=== PATIENT | male | born 1950 | race Caucasian/White ===

== ENCOUNTER → 2016-10-12 | Outpatient (CLI) | payer OTHER ==
[~2016-10-12] VITALS: Ht 182.9 cm; Wt 104.3 kg
[~2016-10-12] MED LIST: LEXAPRO 10 MG T10 M1 PO; LEXAPRO20 MG PO; LISINOPRIL20 MG PO; MIRAPEX0.125 MG PO; TRAZODONE HCL100 MG PO
--- NOTE | ~2016-10-12 | HPC ---
[facility] [place] [address] PAIN MANAGEMENT CONSULTATION Name: SUE ELLISNE [facility] [id number] Admission: 10/12/16 Attend Phys: All Ellis DO Discharge: Date of : 50 Report #: [id number] THIS REPORT FOR: //name// CC: Dewey Ellis The patient is a 65-year-old gentleman seen in consultation at the request of Dr. Hahn for evaluation of pain in left hip, lateral thigh, calf, to ankle. The patient notes some subjective weakness in the leg, paresthesia, but no saddle anesthesia nor bowel or bladder continence changes. He has used [id number] anti-inflammatory medications, physical therapy, exercises and range of motion. Pain has been present since July without specific antecedent trauma or overuse. Notes pain is in the left hip, thigh, ankle, del castillo down to his foot. Notes, it is exacerbated with sitting or lying, gets some relief in the afternoons with some standing and walking. Describes periodic, intermittent burning, aching, sharp pain, rates it anywhere from a 3-9 on a 0-10 visual analog scale. REVIEW OF SYSTEMS: Complete review of systems was attached to chart and gone over with the patient. He is , does not smoke nor drink alcohol to excess. States he had consumed alcohol heavily in his youth. 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 He has a history of hypertension treated with lisinopril, restless legs syndrome for which he takes Mirapex, chronic anxiety and depression for which he takes Lexapro and trazodone. States that he had been suicidal at one point and is in counseling presently. Surgery includes a right knee arthroscopy, right shoulder surgery, left shoulder surgery, and a nasal septal reconstruction. 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 Pain impact score averages about 4.2 for all indices queried. PHYSICAL EXAMINATION: Reveals a 6 feet tall, 230 pound gentleman, BMI is 31.2 kilograms per meter squared. Blood pressure 159/95, pulse is 58, respirations of 16. Cervical range of motion is full. Upper extremity strength is preserved. Cranial nerves 2-12 are grossly intact. Pupils are equal, reactive to light and accommodation. Extraocular muscles are intact with no nystagmus. Heart is regular rhythmical. Lungs are clear. Right shoulder does have some pain with abduction, status post right shoulder surgery in distant past, recent strain, though this patient feels is transient. Rises from the chair using the armrest, gait is modestly antalgic. Does have some osseous hypertrophy in the bilateral knees. Lower extremity strength is generally symmetric about 4/5 to all muscle groups tested. Positive straight [facility] [address] [place] [address] PAIN MANAGEMENT CONSULTATION Name: SUE ELLIS Room #: REG [facility] Ton#: [id number] Admission: 10/12/16 Attend Phys: All Ellis DO Discharge: Date of : 50 Report #: [id number] leg raise on the left. Left patellar reflex is diminished compared to the right. Achilles reflexes are symmetric. Skin integument is intact. DIAGNOSTIC STUDIES: Include an MRI of the lumbar spine showing lumbar spondylosis throughout, thecal sac narrowing at L3-L4, L4-L5 notes narrowing of the left lateral margin on the posterior elements. Small left apophyseal joint effusion at L5-S1. ASSESSMENT: Symptomatic lumbar radiculopathy. RECOMMENDATIONS: Lumbar epidural injection under fluoroscopy for classic left L4 distribution. We will request authorization for L4-L5 translaminar epidural injection. By: [id number] All Ellis DO /nt
[2016-10-12 12:43] VITALS: BP 159/95
== END | disposition home or self-care (01) ==
LOC: PAIN 10-09 14:29
DX: M54.16 Radiculopathy, lumbar region (principal); M48.06 Spinal stenosis, lumbar region; Z98.890 Other specified postprocedural states

== ENCOUNTER → 2016-10-26 | Outpatient (CLI) | payer OTHER ==
[~2016-10-26] VITALS: Ht 180.3 cm; Wt 108.9 kg
[~2016-10-26] MED LIST changes: +ALEVE220 MG PO
--- NOTE | ~2016-10-26 | HPC ---
[facility] [place] [address] [address] PAIN MANAGEMENT CONSULTATION Name: SUE ELLIS Room #: REG [facility] Ton#: [id number] Admission: 10/26/16 Attend Phys: All Ellis DO Discharge: Date of : 50 Report #: [id number] THIS REPORT FOR: //name// CC: Dewey Ellis HISTORY OF PRESENT ILLNESS: The patient is a 65-year-old gentleman, prior seen in the pain clinic 10/12/2016. He was seen in consultation at that time, we diagnosed symptomatic lumbar radiculopathy, sought authorization for epidural injection under fluoroscopy. Authorization was obtained for lumbar epidural injection under fluoroscopy for the time interval 10/20/2016 through 01/18/2017. The patient returns to pain clinic today. I reviewed the MRI from 01/07/2015 with the patient. L4-L5 notes mild left lateral marginal posterior elements with some compromise at this level, L5-S1 notes mild narrowing of the left lateral margin and posterior element, also causing some left neural foraminal narrowing, has some right-sided issues, though they do not seem to be associated with radicular symptoms. The patient notes his pain is fairly specifically in the left hip, lateral thigh, down to the del castillo and ankle. 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 X-rays from 09/10/2014 notes straightening of the lumbar lordosis with degenerative changes. The patient notes the ongoing pain that he rates anywhere from a 1-8 on a VAS, noting pain is worse at night, again left hip, left thigh, knee, del castillo and ankle. Intermittent burning, aching, sharp pain, exacerbated with standing, walking, though sleeping also seems to be compromised by his pain. PHYSICAL EXAMINATION: Unchanged from consultation. A 65-year-old gentleman, BMI is 33.5 kilograms per meter squared. Blood pressure is modestly elevated 153/91, pulse 60, respirations 14. Rises from chair using armrest. Gait is tandem, some diffuse tenderness across the low back. Slight decreased left hip flexion strength. Mildly positive straight leg raise on the left. ASSESSMENT: Symptomatic lumbar radiculopathy by clinical exam and history. RECOMMENDATION: Long discussion with the patient today about therapeutic options. The patient was seen for approximately 8:53 to 9:29, greater than 50% of this 25+ minute visit was spent counseling the patient. While he was authorized for and plan to move forward with epidural injection under fluoroscopy today (left to midline L4-L5) he is somewhat hesitant to move forward with interventional therapy, i.e. no injections into his "spine." I assured him that the injection was intended to be in the epidural space, adjacent to but not past the dura . Nonetheless, pointed out it is a simply an elective procedure that should help mitigate symptoms, does not actually change [address] [address] PAIN MANAGEMENT CONSULTATION Name: SUE ELLIS Room #: REG [facility] Camilo#: [id number] Admission: 10/26/16 Attend Phys: All Ellis DO Discharge: Date of : 50 Report #: [id number] his osseous pathology in the lumbar spine, he does have some arthritic changes here. He expressed interest in trialing chiropractic manipulation and tells me he has bought an inversion table. I strongly suggest he follow through these therapeutic modalities. I told him give physical therapy and then the inversion table a good 30-day trial. He is continue with Naprosyn p.r.n. as a good nonsteroid anti-inflammatory. If in 4 weeks symptoms remain problematic, we can perform an injection at that time. If for; however, he is able to actually gets some relief with chiropractic manipulation and the inversion decompression table, I told him to simply follow up with us on an as needed basis. Thank you for allowing me to participate in the patient's care. Discharged today in good stable condition after prolonged visit, spent reviewing therapeutic options and reviewing somewhat dated diagnostic studies from 2014 that he did not have with him at his consultation. <ELECTRONICALLY SIGNED> By: All Ellis DO 10/28/16 [id number] All Ellis DO /nt
[2016-10-26 08:49] VITALS: BP 153/91
== END ==
LOC: PAIN 06:37
DX: M54.16 Radiculopathy, lumbar region (principal)